=== PATIENT | female | born 1990 | race Caucasian/White ===

== ENCOUNTER → 2016-10-05 13:25 | Observation (INO) ==
[2016-10-05 12:20] LABS: Bilirubin,Urine Negative (Negative); Blood,Urine Negative (Negative); Color,Urine Yellow (Yellow); Glucose,Urine (UA) Normal (Normal); Ketones,Urine Negative (Negative); Leukocyte Esterase,Urine Negative (Negative); Nitrite,Urine Negative (Negative); Protein,Urine Negative (Neg-Trace); Specific Gravity,Urine > 1.030 (1.010-1.025); Urobilinogen,Urine Normal (Normal)
[2016-10-05 12:22] LABS: Basophils % 0.1 %; Eosinophils # 0.1 K/mcL (0.0-0.6); Eosinophils % 0.6 %; Hematocrit 32.2 % (35.3-44.9); Hemoglobin 10.8 g/dL (11.5-15.4); Immature Granulocytes % 0.7 % (0-4); Lymphocytes # 1.5 K/mcL (0.6-4.6); Mean Corpuscular HGB Conc 33.5 g/dL (31.6-35.5); Mean Corpuscular Hemoglobin 29.8 pg (28.0-33.3); Monocytes # 0.5 K/mcL (0.0-1.3); Monocytes % 4.7 %; Neutrophils # 8.3 K/mcL (1.6-8.9); Platelet Count 189 K/mcL (140-400); Red Blood Count 3.62 M/mcL (3.82-4.97); Segmented Neutrophils % 79.9 %
[2016-10-05 12:32] LABS: Clarity,Urine Clear (Clear)
[2016-10-05 12:35] VITALS: BP 125/79
[2016-10-05 12:36] LABS: Alanine Aminotransferase 15 Units/L (0-55); Aspartate Amino Transferase 16 Units/L (5-34); BUN/Creatinine Ratio 17 (6-26); Blood Urea Nitrogen 10 mg/dL (7-20); Lactate Dehydrogenase 170 Units/L (159-327); Uric Acid 4.5 mg/dL (2.6-6.0); eGFR For African Americans > 60 (> 60); eGFR For Non-African Americans > 60 (> 60)
[2016-10-05 12:41] LABS: Mucus,Urine Few (Few); Squamous Epithelial Cell,Urine Many per lpf (None-Few)
[2016-10-05 12:42] LABS: Bacteria,Urine Moderate per hpf (None-Few); WBC,Urine 0-3 per hpf (0-3)
--- NOTE | 2016-10-05 13:16 | Discharge Summary ---
Date of Encounter: 10/05/16 Time of Encounter: 13:15 - Discharge Diagnosis (1) 32 weeks gestation of Priority: Primary Status: Acute Comments: admitted for PIH evaluation (2) Elevated BP without diagnosis of hypertension Priority: Secondary Status: Acute Comments: PIH labs within normal limits BPs within normal limits reactive NST - Discharge Medications Home Medications: Phenazopyridine HCl [Pyridium] 200 mg PO TID #6 tab 07/17/15 [Rx] Sulfamethoxazole/Trimeth DS [Bactrim DS] 1 each PO BID #10 tablet 07/17/15 [Rx] Allergies/Adverse Reactions: Allergies Penicillins Allergy (Verified 03/11/16 03:02) Rash Data Procedures and tests throughout hospitalization: Laboratory Tests 10/05/16 10/05/16 10/05/16 12:04 12:04 12:04 WBC 10.3 RBC 3.62 L Hgb 10.8 L Hct 32.2 L MCV 89.0 MCH 29.8 MCHC 33.5 RDW 13.0 Plt Count 189 MPV 12.0 Immature Gran % 0.7 Seg Neutrophils % 79.9 Lymphocytes % 14.0 Monocytes % 4.7 Eosinophils % 0.6 Basophils % 0.1 Neutrophils # 8.3 Lymphocytes # 1.5 Monocytes # 0.5 Eosinophils # 0.1 Basophils # 0.0 BUN 10 Creatinine 0.58 Est GFR ( Amer) > 60 Est GFR (Non-Af Amer) > 60 BUN/Creatinine Ratio 17 Uric Acid 4.5 AST 16 ALT 15 Lactate Dehydrogenase 170 Urine Color Yellow Urine Clarity Clear Urine pH 6.0 Ur Specific [place] > 1.030 H Urine Protein Negative Urine Glucose (UA) Normal Urine Ketones Negative Urine Blood Negative Urine Nitrite Negative Urine Bilirubin Negative Urine Urobilinogen Normal Ur Leukocyte Esterase Negative Urine Microscopic RBC Test Not Performed Urine Microscopic WBC 0-3 Ur Squamous Epith Cells Many H Urine Bacteria Moderate H Hyaline Casts Test Not Performed Urine Mucus Few Urine Yeast Test Not Performed Ur Culture Indicated? NO Labs on day of discharge: Labs from last 24 hours 10/05/16 10/05/16 10/05/16 12:04 12:04 12:04 WBC 10.3 RBC 3.62 L Hgb 10.8 L Hct 32.2 L MCV 89.0 MCH 29.8 MCHC 33.5 RDW 13.0 Plt Count 189 MPV 12.0 Immature Gran % 0.7 Seg Neutrophils % 79.9 Lymphocytes % 14.0 Monocytes % 4.7 Eosinophils % 0.6 Basophils % 0.1 Neutrophils # 8.3 Lymphocytes # 1.5 Monocytes # 0.5 Eosinophils # 0.1 Basophils # 0.0 BUN 10 Creatinine 0.58 Est GFR ( Amer) > 60 Est GFR (Non-Af Amer) > 60 BUN/Creatinine Ratio 17 Uric Acid 4.5 AST 16 ALT 15 Lactate Dehydrogenase 170 Urine Color Yellow Urine Clarity Clear Urine pH 6.0 Ur Specific [place] > 1.030 H Urine Protein Negative Urine Glucose (UA) Normal Urine Ketones Negative Urine Blood Negative Urine Nitrite Negative Urine Bilirubin Negative Urine Urobilinogen Normal Ur Leukocyte Esterase Negative Urine Microscopic RBC Test Not Performed Urine Microscopic WBC 0-3 Ur Squamous Epith Cells Many H Urine Bacteria Moderate H Hyaline Casts Test Not Performed Urine Mucus Few Urine Yeast Test Not Performed Ur Culture Indicated? NO Date of admission: 10/05/16 11:23 Primary care physician: Paresh Ba Jr, MD Discharging clinician: Felipa Pressley Anticipated date of discharge: 10/05/16 - Patient Status Disposition: Home, Self-Care Condition: Good Functional capacity at discharge: independent ambulation - Discharge Instructions Follow Up With: Paresh Ba Jr, MD [Primary Care Provider] - Shaun Jesus MD [Non-Partnered Physician] - - Diet and Activity Activity: increase activity as tolerated Diet: regular diet Hospital Course CHIEF OF PARTY Hospital course: Patient is 26 y/o at 32 weeks gestational age presents to L+D with complaints of elevated BP while at work. Patient reports history of PIH with past but was not delivered until 42 weeks gestational age. Patient denies headache, visual disturbances or epigastric pain. PIH evaluation WNL. Patient to follow up with Dr. Jesus as scheduled. FHR 130 bpm moderate variability +15x15 accels no decels noted. Reactive NST. Time Attestation: Total time spent providing and/or coordinating discharge services: Time Spent: Less than 30 minutes Exam - Constitutional Vitals: Temp Pulse Resp BP 97.8 F 86 18 125/79 10/05/16 12:25 10/05/16 12:25 10/05/16 12:25 10/05/16 12:25 General appearance IM: A&O X 3, pleasant, answers questions appropriately - Respiratory Respiratory exam: Present: CTAB - Cardiovascular Cardiovascular exam IM: Present: RRR, +S1, +S2 - Neurological Exam Neurological exam: alert, oriented X3, reflexes normal - VTE Reasons for not Prescribing Prophylaxis: Treatment not Indicated - Low risk for VTE
== END | disposition home or self-care (01) ==
LOC: 1NENULAB
PROVIDERS: ADMIT Obstetrics & Gynecology; ATTEND Obstetrics & Gynecology

== ENCOUNTER → 2019-03-07 20:12 | Observation (INO) ==
[2019-03-07 18:06] LABS: Amphetamine Screen,Urine Negative ng/mL (Cutoff=1000); Barbiturate Screen,Urine Negative ng/mL (Cutoff=200); Benzodiazepines Screen,Urine Negative ng/mL (Cutoff=200); Cannabinoid Screen,Urine Negative ng/mL (Cutoff = 50); Cocaine Screen,Urine Negative ng/mL (Cutoff= 300); Opiate Screen,Urine Negative ng/mL (Cutoff=300); Phencyclidine Screen,Urine Negative ng/mL (Cutoff=25)
[2019-03-07 18:08] LABS: Bilirubin,Urine Negative (Negative); Blood,Urine Negative (Negative); Clarity,Urine Clear (Clear); Color,Urine Yellow (Yellow); Glucose,Urine (UA) Normal (Normal); Ketones,Urine Negative (Negative); Leukocyte Esterase,Urine Negative (Negative); Nitrite,Urine Negative (Negative); PH,Urine 5.5 pH Units (5.0-8.0); Protein,Urine Trace mg/dL (Neg-Trace); Specific Gravity,Urine > 1.030 (1.010-1.025); Urobilinogen,Urine Normal (Normal)
[~2019-03-07 20:12] MED LIST: Ringers Solution, Lactated 1,000 ML IVC ONE; Ringers Solution, Lactated 1,000 ML ONE
== END | disposition home or self-care (01) ==
LOC: 1NENULAB
PROVIDERS: ADMIT Advanced Practice Midwife; ATTEND Advanced Practice Midwife

== ENCOUNTER 2019-03-16 12:58 | Inpatient (IN) ==
[2019-03-16] MEDS ORDERED: Clindamycin 900 MG/50 ML 900 MG/50 ML IV.SOLN IVPB ONE (13:11)
[2019-03-16] MEDS ORDERED: SODIUM CHLORIDE 0.9% IVPB ONE (13:11)
[2019-03-16] MEDS ORDERED: Famotidine 20 MG/2 ML VIAL IVP ONE (13:11)
[2019-03-16] MEDS ORDERED: GENTAMICIN IVPB ONE (13:11)
[2019-03-16] MEDS ORDERED: Ringers Solution, Lactated 1,000 ML IVC ONE (13:11)
[2019-03-16] MEDS ORDERED: Metoclopramide 10 MG/2 ML VIAL IVP ONE (13:11)
[2019-03-16] MEDS ORDERED: Oxytocin 20 units/ LR 1000 mL 20 UNIT/1,000 ML BAG IVC ONE (13:11)
[2019-03-16] MEDS ORDERED: Oxytocin 20 units/ LR 1000 mL 20 UNIT/1,000 ML BAG IVC SCH ×2 (13:15→18:16)
[2019-03-16] MEDS ORDERED: Ringers Solution, Lactated 1,000 ML IVC SCH ×2 (13:15→18:16)
[2019-03-16 13:59] LABS: Basophils % 0.3 %; Eosinophils % 0.2 %; Hematocrit 32.5 % (35.3-44.9); Hemoglobin 11.2 g/dL (11.5-15.4); Immature Granulocytes % 0.4 % (0-4); Lymphocytes # 1.3 K/mcL (0.6-4.6); Lymphocytes % 14.9 %; Mean Corpuscular HGB Conc 34.5 g/dL (31.6-35.5); Mean Corpuscular Hemoglobin 30.1 pg (28.0-33.3); Mean Corpuscular Volume 87.4 fL (83.0-100.0); Mean Platelet Volume 12.3 fL (9.4-12.4); Monocytes # 0.4 K/mcL (0.0-1.3); Monocytes % 4.7 %; Neutrophils # 7.1 K/mcL (1.6-8.9); Platelet Count 176 K/mcL (140-400); Red Blood Count 3.72 M/mcL (3.82-4.97); Red Cell Distribution Width 13.3 % (11.5-14.5); Segmented Neutrophils % 79.5 %; White Blood Count 8.9 K/mcL (4.3-11.1)
[2019-03-16] MEDS ORDERED: *HR* Morphine Sulfate/PF 10 MG/10 ML AMPUL ONE (15:21)
[2019-03-16] MEDS ORDERED: *HR* FentaNYL (PF) 100 MCG/2 ML VIAL ONE (15:21)
[2019-03-16] MEDS ORDERED: *HR* Phenylephrine 10 MG/ML VIAL ONE (15:23)
[2019-03-16 15:28] LABS: Amphetamine Screen,Urine Negative ng/mL (Cutoff=1000); Barbiturate Screen,Urine Negative ng/mL (Cutoff=200); Benzodiazepines Screen,Urine Negative ng/mL (Cutoff=200); Cannabinoid Screen,Urine Negative ng/mL (Cutoff = 50); Cocaine Screen,Urine Negative ng/mL (Cutoff= 300); Opiate Screen,Urine Negative ng/mL (Cutoff=300); Phencyclidine Screen,Urine Negative ng/mL (Cutoff=25)
[2019-03-16] MEDS ORDERED: *HR* Oxytocin 10 UNIT/ML VIAL IM ONE ×2 (15:28→16:03)
[2019-03-16] MEDS ORDERED: Ringers Solution, Lactated 1,000 ML ONE (16:03)
[2019-03-16] MEDS ORDERED: *HR* OxyCODONE Immed Rel 5 MG TABLET PO PRN (16:42)
[2019-03-16] MEDS ORDERED: *HR* HYDROmorphone (PF) 1 MG/ML SYRINGE IVP PRN (16:42)
[2019-03-16] MEDS ORDERED: Acetaminophen IV 1,000 MG/100 ML INFUS..BTL IVPB ONE (16:42)
[2019-03-16] MEDS ORDERED: *HR* OxyCODONE/APAP 5/325 TABLET PO PRN (18:16)
[2019-03-16] MEDS ORDERED: Simethicone 80 MG TAB.CHEW PO PRN (18:16)
[2019-03-16] MEDS ORDERED: Metoclopramide 10 MG/2 ML VIAL IVP PRN (18:16)
[2019-03-16] MEDS ORDERED: Ondansetron 4 MG/2 ML VIAL IVP PRN (18:16)
[2019-03-16] MEDS ORDERED: Sennosides 8.6 MG TABLET PO PRN (18:16)
[2019-03-16] MEDS ORDERED: *HR* OxyCODONE/APAP 10/325 TABLET PO PRN (18:30)
[2019-03-16] MEDS: Ibuprofen 600 MG TABLET PO PRN (20:56)
[2019-03-17] MEDS: Ibuprofen 600 MG TABLET PO PRN ×3 (07:38→21:13)
[2019-03-17] MEDS ORDERED: Prenatal Vit/FA 1 EACH TABLET PO SCH (09:00)
[2019-03-17 09:21] LABS: Basophils % 0.2 %; Eosinophils % 0.4 %; Hematocrit 29.2 % (35.3-44.9); Hemoglobin 9.9 g/dL (11.5-15.4); Immature Granulocytes % 0.5 % (0-4); Lymphocytes # 0.9 K/mcL (0.6-4.6); Lymphocytes % 8.7 %; Mean Corpuscular HGB Conc 33.9 g/dL (31.6-35.5); Mean Corpuscular Volume 88.5 fL (83.0-100.0); Mean Platelet Volume 12.3 fL (9.4-12.4); Monocytes # 0.6 K/mcL (0.0-1.3); Monocytes % 5.8 %; Neutrophils # 8.6 K/mcL (1.6-8.9); Platelet Count 155 K/mcL (140-400); Red Cell Distribution Width 13.3 % (11.5-14.5); Segmented Neutrophils % 84.4 %; White Blood Count 10.2 K/mcL (4.3-11.1)
[2019-03-18] MEDS: Ibuprofen 600 MG TABLET PO PRN ×2 (03:25→08:56)
[2019-03-18 08:09] VITALS: BP 112/67
== END 2019-03-18 11:00 | disposition home or self-care (01) | DRG 788 ==
LOC: 1NENULAB 12:58 → 1NENUOBS 18:23
PROVIDERS: ADMIT Obstetrics & Gynecology; ATTEND Obstetrics & Gynecology